=== PATIENT | female | born 1960 | race Caucasian/White ===

== ENCOUNTER 2019-11-04 09:57 | Emergency (ER) | payer OTHER ==
--- NOTE | 2019-11-04 10:34 | ED Physician Documentation ---
PD HPI PED TRAUMA - Stated complaint Stated complaint: LAC L THUMB - Chief complaint Chief Complaint: Laceration - History obtained from History obtained from: Patient - Additional information Additional information: Right-handed woman who is up-to-date on tetanus cut the tip of her left thumb with an ax just prior to arrival while chopping wood Review of Systems Constitutional: reports: Reviewed and negative Ears: reports: Reviewed and negative Nose: reports: Reviewed and negative Throat: reports: Reviewed and negative PD PAST MEDICAL HISTORY - Present Medications Home Medications: Ambulatory Orders Medication Instructions Recorded Confirmed Bacitracin Zinc Oint 1 applic TOP BID #1 tube 11/04/19 - Allergies Allergies/Adverse Reactions: Allergies Allergy/AdvReac Type Severity Reaction Status Date / Time No Known Drug Allergies Allergy Verified 11/04/19 10:15 PD ED PE NORMAL - Vitals Vital signs reviewed: Yes - General General: Alert and oriented X 3, No acute distress - Extremities Extremities: Other (She has a less than 1 cm tip amputation of the left thumb which is actively bleeding.) - Neuro Neuro: Alert and oriented X 3, Normal speech Results - Vitals Vitals: Vital Signs - 24 hr 11/04/19 10:13 Temperature 37 C Heart Rate 88 Respiratory 16 Rate Blood Pressure 135/67 H O2 Saturation 100 Oxygen O2 Source Room air PD MEDICAL DECISION MAKING - ED course ED course: Wound was irrigated and dressed with Gelfoam and tube gauze Departure - Departure Disposition: 01 Home, Self Care Clinical Impression: Fingertip amputation Qualifiers: Encounter type: initial encounter Qualified Code(s): S68.119A - Complete traumatic metacarpophalangeal amputation of unspecified finger, initial encounter Condition: Good Record reviewed to determine appropriate education?: Yes Instructions: ED Laceration Amputation Finger Tip Open Tx Prescriptions: Bacitracin Zinc Oint 1 applic TOP BID #1 tube Comments: Remove the current dressing on Wednesday, after that you can wash it briefly with soap and water and just keep it covered with a Band-Aid and use the prescription antibiotic ointment. It should heal in fine but follow-up with your doctor in a week for a wound check.
[2019-11-04 11:08] VITALS: BP 136/84
== END 2019-11-04 11:08 | disposition home or self-care (01) ==
LOC: ED 09:57
DX: S68.012A Complete traumatic metacarpophalangeal amputation of left thumb, initial encounter (principal); W27.0XXA Contact with workbench tool, initial encounter; Y93.89 Activity, other specified
CPT/HCPCS: 99282